=== PATIENT | female | born 1995 | race Caucasian/White ===

== ENCOUNTER 2017-01-14 23:18 | Inpatient (IN) | payer BC, OTHER ==
[2017-01-14] MEDS ORDERED: Lidocaine 1% (PF) 30 ML VIAL ONE (23:27)
[2017-01-14 23:52] VITALS: BMI 27.1
[2017-01-15] MEDS ORDERED: Lanolin Ointment 7 GM TUBE TOP PRN (00:07)
[2017-01-15] MEDS ORDERED: Milk Of Magnesia 30 ML UDCUP PO PRN (00:07)
[2017-01-15] MEDS ORDERED: Bisacodyl 10 MG SUPP PR PRN (00:07)
[2017-01-15] MEDS ORDERED: Benzocaine/Menthol 20-0.5% 60 ML CAN TOP PRN (00:07)
[2017-01-15] MEDS ORDERED: Promethazine HCl 25 MG/ML VIAL IM PRN (00:07)
[2017-01-15] MEDS ORDERED: Acetaminophen/Codeine 30-300mg Tablet PO PRN ×2 (00:07)
[2017-01-15] MEDS ORDERED: LR / Pitocin 40 units/1000 ml 1,000 ML IV SCH (00:15)
[2017-01-15 00:44] LABS: Hematocrit 31.2 % (36.0-47.0); Mean Platelet Volume 9.4 fL (7.4-10.4); White Blood Cell (WBC) Count 20.5 thou/uL (4.8-10.8)
[2017-01-15 01:36] LABS: Amphetamine Not Detected (NotDetected); Methadone Not Detected (NotDetected); Methamphetamine Not Detected (NotDetected)
[2017-01-15] MEDS: Adacel (T-DAP) 0.5 ML VIAL IM ONE (02:31)
[2017-01-15] MEDS: Lactated Ringer's 1,000 ML IV SCH ×3 (02:32→14:42)
[2017-01-15] MEDS ORDERED: Methylergonovine 0.2 MG TAB PO SCH ×2 (04:15→07:00)
[2017-01-15 05:39] LABS: Hematocrit 29.1 % (36.0-47.0); Mean Platelet Volume 9.4 fL (7.4-10.4); Red Blood Cell (RBC) Count 3.17 mill/uL (4.20-5.40); White Blood Cell (WBC) Count 19.3 thou/uL (4.8-10.8)
--- NOTE | 2017-01-15 06:19 | OP ---
DATE OF ENCOUNTER: 01/14/2017 PRIMARY OB: Gerson Escamilla MD INDICATION FOR PROCEDURE: The patient delivered a infant at home and was brought by EMS to labor and delivery for evaluation. The patient had some vaginal bleeding, had a firm fundus at the umbilicus at ultrasound had a thickened endometrial stripe, but did not appear to have placenta. On digital exam, there was no cord palpable. On initial presentation, there was no clear story as to whether the placenta delivered or not. Talking to the EMS, they reported that the placenta had not delivered when they brought the patient; however, talking to family members at home, they reported that there was something at home that looked like a placenta. On evaluation, patient was noted to have a second degree vaginal laceration, which was bleeding a 2-0 chromic and SH needle was used in a running locked fashion for closure of this vaginal laceration, which made her hemostatic. On digital exam, there was no palpable cord, no palpable membranes. Once the placenta was brought, it appeared to be intact, however, had no amnion attached to it. Given the patient 's improvement of symptoms and firm uterus and no palpable membranes, I have not pursued this further. At this time, however, I have placed the patient on Methergine q.6 hours for the next 24 hours in the event that she has retained products of conception to help facilitate possible expulsion. I will keep a close eye on the patient in the event that the bleeding were to return and be significant, this may be a possible cause. Her baby is in NICU. LUCA
[2017-01-15] MEDS: Ibuprofen 800 MG TAB PO SCH ×3 (06:40→21:41)
[2017-01-15] MEDS: Ferrous Sulfate 325 MG TAB PO SCH ×2 (08:14→17:17)
[2017-01-15] MEDS: Prenatal Vitamin 1 TAB PO SCH (08:16)
[2017-01-15] MEDS: Docusate Calcium (SURFAK) 240 MG CAP PO SCH ×3 (08:16→20:15)
--- NOTE | 2017-01-15 08:53 | PDOC.PP ---
Post Progress Note Post Day #: 1 Subjective: Doing well, a little sore. PO intake tolerated: yes Ambulation: yes Vital Signs (12 hours) Temp Pulse Resp BP 01/15/17 06:20 98.6 F 78 18 120/62 01/15/17 04:00 98.0 F 85 20 01/15/17 03:00 98.5 F 87 18 113/55 L 01/15/17 00:00 98.0 F 85 20 01/14/17 23:42 98.0 F Weight Weight 148 lb - Physical Examination General: NAD Respiratory: non-labored breathing Abdominal: lochia, no distention, appropriately TTP Fundus firm & at: U-3 Neurological: no gross focal deficits Psychiatric: A&Ox3, normal affect Result Diagrams: 01/15/17 05:21 Additional Labs: Post Labs Hep Bs Antigen Non-Reactive S/CO (NonReactive) 01/15/17 00:21 (1) Precipitous delivery Code(s): O62.3 - PRECIPITATE LABOR Status: Acute (2) delivery Status: Acute - Assessment/Plan Patient doing well. Bleeding scant per RN. Continue PP management.
[2017-01-15] MEDS: Methylergonovine 0.2 MG TAB PO SCH ×2 (13:56→20:12)
[2017-01-16] MEDS: Lactated Ringer's 1,000 ML IV SCH ×2 (01:46→08:00)
[2017-01-16] MEDS: Methylergonovine 0.2 MG TAB PO SCH (02:13)
[2017-01-16] MEDS: Ibuprofen 800 MG TAB PO SCH ×2 (06:52→14:10)
--- NOTE | 2017-01-16 07:34 | PDOC.PP ---
Post Progress Note Post Day #: 1 Subjective: Doing well, no complaints. Slept better last night. PO intake tolerated: yes Flatus: yes Ambulation: yes Vital Signs (12 hours) Temp Pulse Resp BP 01/16/17 00:00 97.9 F 85 20 01/15/17 20:00 97.9 F 85 20 114/67 Weight Weight 148 lb - Physical Examination Respiratory: non-labored breathing Abdominal: lochia (normal), no distention, appropriately TTP Fundus firm & at: U-3 Extremities: negative homans (B) Skin: no rash Neurological: no gross focal deficits Psychiatric: A&Ox3, normal affect Result Diagrams: 01/15/17 05:21 Additional Labs: Post Labs Hep Bs Antigen Non-Reactive S/CO (NonReactive) 01/15/17 00:21 (1) Precipitous delivery Code(s): O62.3 - PRECIPITATE LABOR Status: Acute (2) delivery Status: Acute - Assessment/Plan Delivered early yesterday morning. Would like to stay until tomorrow. Anticipate d/c at that time.
[2017-01-16 08:04] VITALS: BP 109/59; TEMP 97.6
[2017-01-16] MEDS: Docusate Calcium (SURFAK) 240 MG CAP PO SCH (09:07)
[2017-01-16] MEDS: Prenatal Vitamin 1 TAB PO SCH (09:07)
[2017-01-16] MEDS: Ferrous Sulfate 325 MG TAB PO SCH (09:08)
[2017-01-16] MEDS: Adacel (T-DAP) 0.5 ML VIAL IM ONE (16:39)
[2017-01-16] MEDS ORDERED: FLU VACC QS2017-18 36 mo. & older 0.5 ML SYRINGE IM ONE (17:00)
--- NOTE | 2017-01-17 00:10 | DIS ---
DATE OF ADMISSION: 01/14/2017 DATE OF DISCHARGE: 01/16/2017 ADMITTING DIAGNOSIS: Precipitous home delivery at 31 weeks with second-degree vaginal laceration. DISCHARGE DIAGNOSIS: Precipitous home delivery at 31 weeks with second-degree vaginal laceration. PROCEDURE: Repair of a second-degree laceration. CONSULTATIONS: None. HOSPITAL COURSE: The patient is a 21-year-old female G1, P0, who presented to labor and delivery by EMS after delivering a 31/32 week at the house. Upon arrival, evaluation noted a vaginal b leeding with the second-degree vaginal laceration, which was repaired. The patient was subsequently then transferred to the floor where she has been recovering. Today is day #1 , the patient is requesting discharge home. The patient's bleeding is slowing down. She is ambulat ing, tolerating p.o., voiding on her own. PHYSICAL EXAMINATION: VITAL SIGNS: Today at time of discharge, blood pressure is 109/59, temperature 97.6, pulse of 81, r espiratory rate of 20. GENERAL: She appears to be in no acute distress. She is alert and oriented, and cooperative and pl easant to interact with. HEAD: Normocephalic, atraumatic. DISCHARGE FOLLOWUP: The patient has been counseled to follow up with her primary OB, Dr. Gerson seo in 6 weeks. DISCHARGE INSTRUCTIONS: She has also been counseled to seek medical attention sooner if she experie nces fever, increasing pain or bleeding. She will be taking ibuprofen at home as needed for pain.
== END 2017-01-16 17:00 | disposition home or self-care (01) | DRG 769 ==
LOC: L&D 23:18 → 3SW 01-15 02:56
PROVIDERS: ADMIT Obstetrics & Gynecology; ATTEND Obstetrics & Gynecology
PROC: 0KQM0ZZ Repair Perineum Muscle, Open Approach (ICD-10-PCS; principal; 2017-01-14)
DX: O70.1 Second degree perineal laceration during delivery (principal); Z3A.32 32 weeks gestation of pregnancy
CPT/HCPCS: 36415; 76815; 80306; 85027; 86780; 87340; 88307; 90715; J2001

== ENCOUNTER 2019-11-30 15:16 | Outpatient (CLI) | payer BC ==
[~2019-11-30 15:16] MED LIST: Magnevist 469MG/ML 20 ML VIAL ONE
--- NOTE | 2019-11-30 16:47 | MRI ---
MRI BRAIN WITH AND WITHOUT IV CONTRAST: HISTORY: Migraine headaches COMPARISON: None CORRELATION: None FINDINGS: No restricted diffusion is seen. No evidence of infarct, hemorrhage, mass, midline shift or abnormal extra-axial fluid collections is noted. No abnormal postcontrast enhancement is seen. The ventricular size is appropriate and the basilar cisterns are patent. There is a prominent perivascula r space in the right basal ganglia. No tonsillar herniation is seen. There is a tiny amount of fluid in the right mastoid air cells.The visualized paranasal sinuses are well aerated. IMPRESSION: No evidence of acute intracranial process or mass.
== END 2019-11-30 15:17 | disposition home or self-care (01) ==
LOC: BICMRI 15:16
PROVIDERS: ATTEND Family Medicine
DX: G43.909 Migraine, unspecified, not intractable, without status migrainosus (principal)
CPT/HCPCS: 70553; A9579

== ENCOUNTER 2021-02-13 07:04 | Outpatient (CLI) | payer BC | END 2021-02-13 07:05 | disposition home or self-care (01) | LOC: BICULT 07:04 | PROVIDERS: ATTEND Family Medicine | DX: R10.11 Right upper quadrant pain (principal) | CPT/HCPCS: 76700 ==

== ENCOUNTER 2021-05-10 09:34 | Outpatient (CLI) | payer BC | END 2021-05-10 09:35 | disposition home or self-care (01) | LOC: BICRAD 09:34 | PROVIDERS: ATTEND Internal Medicine Gastroenterology | DX: R10.11 Right upper quadrant pain (principal) | CPT/HCPCS: 71046 ==

== ENCOUNTER 2024-04-25 02:31 | Emergency (ER) | payer BC ==
[2024-04-25 02:55] LABS: Bacteria/HPF None Seen HPF (None Seen); Bilirubin Negative (Negative); Blood, Urine 3+ (Negative); CAUTI Indications for Culture Pelvic or flank pain; Clarity Turbid (Clear); Glucose, Urine (Dipstick) Normal (Negative); Ketone, Urine Negative (Negative); Leukocyte 75 Leu/uL (Negative); Nitrite Negative (Negative); Pregnancy Test - Urine (BHCG) Negative (Negative); Pregu Control Background? CLEAR/WHITE (CLR/WHITE); Pregu Control Bar Appear? YES (CONTROL BAR); Protein, Urine (Dipstick) 50 mg/dL (Neg-Trace); RBC/HPF Greater than 50 HPF (0-3); Urobilinogen Normal mg/dL (Less than 2); WBC/HPF 21-50 HPF (0-3)
[2024-04-25 02:56] LABS: Urine Culture Reflex Yes Yes
[2024-04-25] MEDS ORDERED: Ondansetron PF 4 MG/2 ML Vial ONE ×2 (04:15→05:21)
[2024-04-25] MEDS ORDERED: cefTRIAXone (ROCEPHIN) 1 GM VIAL ONE (04:15)
[2024-04-25] MEDS ORDERED: Ketorolac Tromethamine 30 MG (1 mL) VIAL ONE (04:15)
[2024-04-25] MEDS ORDERED: Sodium Chloride 0.9% 100 ML ONE (04:15)
[2024-04-25 04:35] LABS: #Basophils 0.04 10x3/uL (0.0-0.2); #Eosinophils Less than 0.03 10x3/uL (0.0-0.7); %Basophils 0.2 % (0.0-1.0); %Lymphocytes 3.3 % (21.0-51.0); %Monocytes 2.5 % (0.0-10.0); %Neutrophils 93.5 % (42.0-75.0); Hematocrit 41.9 % (36.0-47.0); Hemoglobin 14.4 g/dL (12.0-16.0); Mean Corpuscular HGB CONC 34.4 g/dL (32.0-36.0); Mean Corpuscular Hemoglobin 30.1 pg (27.0-31.0); Mean Corpuscular Volume 87.5 fL (78.0-98.0); Mean Platelet Volume 11.2 fL (7.4-10.4); Platelet Count 225 10x3/uL (130-400); Red Blood Cell (RBC) Count 4.79 mill/uL (4.20-5.40)
[2024-04-25 04:52] LABS: ALT (SGPT) 33 U/L (Less than 34); AST (SGOT) 34 U/L (11-34); Albumin 4.2 g/dL (3.1-4.5); Alkaline Phosphatase 94 U/L (40-110); Anion Gap 19 mmol/L (10-20); BUN (Urea Nitrogen) 13 mg/dL (7.0-18.7); Bilirubin, Total 0.4 mg/dL (0.3-1.2); Calc. Creatinine Clearance 0 mL/min (70-130); Calcium 9.1 mg/dL (7.8-10.44); Carbon Dioxide 19 mmol/L (22-29); Chloride 107 mmol/L (98-107); Estimated GFR 129; Globulin 4.1 g/dL (2.4-3.5); Glucose 144 mg/dL (70-105); Lipase 12 U/L (8-78); Potassium 3.7 mmol/L (3.5-5.1); Protein, Total 8.3 g/dL (6.0-8.3); Sodium 141 mmol/L (136-145)
[2024-04-25] MEDS ORDERED: Promethazine HCl 25 MG/ML VIAL ONE (06:19)
[2024-04-25] MEDS ORDERED: Azithromycin 250 MG TAB ONE (06:37)
[2024-04-25] MEDS ORDERED: Iopamidol 370 76% 100 ML VIAL ONE (11:06)
[2024-04-25 12:16] LABS: Chlamydia by PCR, Vaginal Swab Not Detected (NotDetected); GC by PCR, Vaginal Swab Not Detected (NotDetected)
== END 2024-04-25 07:03 | disposition home or self-care (01) ==
LOC: ERS 02:31
DX: N73.9 Female pelvic inflammatory disease, unspecified (principal)
CPT/HCPCS: 74177; 80053; 81001; 81025; 83690; 85025; 87086; 87480; 87491; 87510; 87591; 87660; 96365; 96367; 96375; 96376; J0696; J1885; J2405; J2550; Q9967